=== PATIENT | male | born 1955 | race Caucasian/White ===

== ENCOUNTER 2016-10-12 09:51 | Emergency (ER) | payer BC ==
[~2016-10-12] VITALS: Ht 185.4 cm; Wt 119.8 kg
[~2016-10-12 09:51] MED LIST: AUGMENTIN875 MG PO; BENADRYL25 MG PO; FAMOTIDINE20 MG PO; HYDROCODON-ACE1 EAC7 PO; KEFLEX500 MG PO; NO HOME MEDS; PREDNISONE10 MG PO
[2016-10-12 11:44] VITALS: BP 143/80
== END 2016-10-12 11:45 | disposition home or self-care (01) ==
LOC: EME 09:51
PROC: 0HQFXZZ Repair Right Hand Skin, External Approach (ICD-10-PCS; principal; 2016-10-12)
DX: S61.411A Laceration without foreign body of right hand, initial encounter (principal); M79.601 Pain in right arm; W45.8XXA Other foreign body or object entering through skin, initial encounter; Y99.0 Civilian activity done for income or pay
CPT/HCPCS: 99281; 99284